=== PATIENT | male | born 1990 | race Caucasian/White ===

== ENCOUNTER 2017-08-19 11:53 | Emergency (ER) | payer OTHER, BC ==
[2017-08-19] MEDS ORDERED: Lidocaine 1% 20 ML MDV INJECT ONE (12:18)
[2017-08-19] MEDS ORDERED: Bacitracin Oint 1 GM U/D Packet TOP ONE (12:18)
[2017-08-19] MEDS ORDERED: Diphtheria,Pertussis(Acell),Tetanus Vaccine 0.5 ML Syringe IM ONE (12:18)
--- NOTE | 2017-08-19 13:03 | EDM.PDOC ---
ED HPI GENERAL MEDICAL PROBLEM - General Chief Complaint: Laceration Stated Complaint: PT CUT FINGER ON RT HAND Time Seen by Provider: 08/19/17 12:17 Source of Information: Reports: Patient History Limitations: Reports: No Limitations - History of Present Illness INITIAL COMMENTS - FREE TEXT/NARRATIVE: HISTORY AND PHYSICAL: History of present illness: Patient is a 27-year-old male who presents to the emergency room today with complaints of rash injury to the right hand. He states that his hand was pinched between a trailer hitch and a tailgate, helping and a laceration to the right fourth finger. He has a 2.5 cm laceration to the MIP anterior right fourth digit. No current bleeding. Full range of motion without difficulty or deficits. Tetanus has been updated in less than 5 years. Review of systems: As per history of present illness and below otherwise all systems reviewed and negative. Past medical history: As per history of present illness and as reviewed below otherwise noncontributory. Surgical history: As per history of present illness and as reviewed below otherwise noncontributory. Social history: No reported history of drug or alcohol abuse. Family history: As per history of present illness and as reviewed below otherwise noncontributory. Physical exam: Gen.: Well-developed and well-nourished 27-year-old male. Alert and oriented. Nontoxic appearing and in no acute distress HEENT: Atraumatic, normocephalic, pupils reactive, negative for conjunctival pallor or scleral icterus, mucous membranes moist, throat clear, neck supple, nontender, trachea midline. Lungs: Clear to auscultation, breath sounds equal bilaterally, chest nontender. Heart: S1S2, regular, negative for clicks, rubs, or JVD. Abdomen: Soft, nondistended, nontender. Negative for masses or hepatosplenomegaly. Negative for costovertebral tenderness. Pelvis: Stable nontender. Genitourinary: Deferred. Rectal: Deferred. Extremities: Moves all extremities per self. Able to flex and extend all digits of affected hand/fingers, appears to have no tendon involvement. Strong pedal pusles bilaterally. Cap refill less than 3 seconds. Neurovascular unremarkable. Skin: 2.5 centimeter laceration to the base of the right fourth digit, anterior pad. Neuro: Awake, alert, oriented. Cranial nerves II through XII unremarkable. Cerebellum unremarkable. Motor and sensory unremarkable throughout. Exam nonfocal. Diagnostics: Xray Hand Therapeutics: Lidocaine Impression: Hand Laceration Plan: 1. Stitch removal in 7-10 days. Continue to monitor for signs of infection. Take your antibiotic as prescribed. 2. Follow-up with your primary caregiver in the next couple days. Return to the ED as needed and as discussed. Definitive disposition and diagnosis as appropriate pending reevaluation and review of above. Onset: Today Duration: Hour(s): Location: Reports: Upper Extremity, Right R Hand Pain Score (Numeric/FACES): 5 - Related Data Allergies Allergy/AdvReac Type Severity Reaction Status Date / Time No Known Allergies Allergy Verified 08/19/17 12:11 Home Meds: Home Meds Cephalexin [Keflex] 500 mg PO BID 7 Days #14 capsule 08/19/17 [Rx] Past Medical History - Past Health History Medical/Surgical History: Denies Medical/Surgical History - Infectious Disease History Infectious Disease History: Reports: Chicken Pox Social & Family History - Family History Family Medical History: Noncontributory - Tobacco Use Smoking Status *Q: Never Smoker Second Hand Smoke Exposure: No - Caffeine Use Caffeine Use: Reports: Coffee, Energy Drinks, Soda, Tea - Recreational Drug Use Recreational Drug Use: No ED ROS GENERAL - Review of Systems Review Of Systems: ROS reveals no pertinent complaints other than HPI. ED EXAM, SKIN/RASH Exam: See Below (See dictation) ED SKIN PROCEDURES - Laceration/Wound Repair Right 4th digit Lac/Wound length In cm: 2.5 Appearance: Subcutaneous Local Anesthesia - Lidocaine (Xylocaine): 1% Plain Local Anesthetic Volume: 5cc Skin Prep: Chlorhexidine (Hibiciens), Saline, Sterile Drape Exploration/Debridement/Repair: Wound Explored, No Foreign Material Found, Other (No tendon involvement) Closed with: Sutures Suture Size: 4-0 # of Sutures: 6 Suture Type: Interrupted Drain Placement: No Sterile Dressing Applied: Provider Tetanus Status Addressed: Yes Complications: No Progress/Comments: Non-stick dressing applied with 1/2 cast fiberglass splint application Course - Vital Signs Last Recorded V/S: Last Vital Signs Temp 95.6 F 08/19/17 12:09 Pulse 96 08/19/17 12:09 Resp 18 08/19/17 12:09 BP 141/85 H 08/19/17 12:09 Pulse Ox 99 08/19/17 12:09 - Orders/Labs/Meds Orders: Active Orders 24 hr Category Date Time Status Vaccines to be Administered [RC] PER UNIT ROUTINE Care 08/19/17 12:19 Active DME for Discharge [COMM] Stat Oth 08/19/17 14:38 Ordered Meds: Medications Discontinued Medications Generic Name Dose Route Start Last Admin Trade Name Tom PRN Reason Stop Dose Admin Bacitracin 1 dose 08/19/17 12:18 08/19/17 13:18 Bacitracin Oint 1 Gm TOP 08/19/17 12:19 1 dose ONETIME ONE Administration Diphtheria/Tetanus/Acell Pertussis 0.5 ml 08/19/17 12:18 08/19/17 13:14 Adacel IM 08/19/17 12:19 0.5 ml .ONCE ONE Administration Ibuprofen 800 mg 08/19/17 14:53 08/19/17 14:59 Motrin PO 08/19/17 14:54 800 mg ONETIME ONE Administration Lidocaine HCl 20 ml 08/19/17 12:18 08/19/17 13:18 Xylocaine 1% INJECT 08/19/17 12:19 20 ml ONETIME ONE Administration Departure - Departure Time of Disposition: 14:50 Disposition: Home, Self-Care 01 Clinical Impression: Laceration - Discharge Information Prescriptions: Cephalexin [Keflex] 500 mg PO BID 7 Days #14 capsule Instructions: Crush Injury of the Hand, [id number] Referrals: Eufemia Muse MD [Physician] - 1 Week (Follow up within the next week. ) PCP,None [Primary Care Provider] - Forms: ED Department Discharge Care Plan Goals: Ice, elevate, rest extremity. Use splint as directed. Motrin for pain and swelling. Tramadol as needed for pain. Take full amount of antibiotics. - My Orders Last 24 Hours: My Active Orders 08/19/17 12:19 Vaccines to be Administered [RC] PER UNIT ROUTINE 08/19/17 14:38 DME for Discharge [COMM] Stat - Assessment/Plan Last 24 Hours: My Active Orders 08/19/17 12:19 Vaccines to be Administered [RC] PER UNIT ROUTINE 08/19/17 14:38 DME for Discharge [COMM] Stat
[2017-08-19] MEDS ORDERED: Ibuprofen 800 MG Tab PO ONE (14:53)
--- NOTE | 2017-08-19 15:16 | CR ---
EXAM DATE: 08/19/17 PATIENT'S AGE: 27 Patient: VITO CHAPARRO Facility: [place], [place] Site . Site : 1990 Study: XRay Extremity Right HAND [id number]/14/2018 1:38:40 PM Ordering Physician: Doctor Mendez Final Report: INDICATION: Trauma. TECHNIQUE: Two views of the right hand. COMPARISON: None. IMPRESSION: No fracture, subluxation or dislocation. Dictated by Dick Mohan MD @ 08/19/2017 1:51:44 PM Dictated by: Dick Mohan MD @ 08/19/2017 13:52:17 (Electronic Signature) Report Signed by Proxy. ROMEO
== END 2017-08-19 15:02 | disposition home or self-care (01) ==
LOC: MW.ED 11:53
DX: S61.214A Laceration without foreign body of right ring finger without damage to nail, initial encounter (principal); W23.0XXA Caught, crushed, jammed, or pinched between moving objects, initial encounter; Z23 Encounter for immunization
CPT/HCPCS: 12001; 73120; 90471; 90715; 99283; A9270; 99282

== ENCOUNTER 2017-11-03 00:14 | Emergency (ER) | payer BC, OTHER ==
[2017-11-03] MEDS ORDERED: Sodium Chloride 0.9% 1,000 ML IV ONE (00:33)
[2017-11-03] MEDS ORDERED: Sodium Chloride 0.9% 2.5 ML Syringe FLUSH PRN ×2 (00:33)
[2017-11-03] MEDS ORDERED: Aspirin 81 MG Tab.Chew PO ONE (00:33)
[2017-11-03] MEDS ORDERED: Sodium Chloride 0.9% 10 ML Syringe FLUSH PRN (00:33)
--- NOTE | 2017-11-03 00:35 | EDM.PDOC ---
ED HPI GENERAL MEDICAL PROBLEM - General Chief Complaint: General Stated Complaint: POSSIBLE HEART ATTACK Time Seen by Provider: 11/03/17 00:35 Source of Information: Reports: Patient History Limitations: Reports: No Limitations - History of Present Illness INITIAL COMMENTS - FREE TEXT/NARRATIVE: HISTORY AND PHYSICAL: History of present illness: 27-year-old male presenting in the emergency department with chief complaint of chest tightness and diaphoresis 2 hours. Patient states for the last 2 days he has felt off and has had associated diaphoresis and some nausea. Tonight while he was sitting [place] have some chest tightness that radiated into his left arm. He had associated diaphoresis as well as nausea but denies any significant shortness of breath. He does have a strong family history of cardiac disease with a father that had an RI in his 50s. Secondary to above the Emergency room for further evaluation. Currently the patient feels diaphoretic but does not have any chest tightness. Does have some nausea but denies any recent fevers. Up until 2 days ago is feeling his normal self. Denies any dysuria, abdominal pain, sore throat, leg pain. Currently denies any chest pain, palpitations, shortness of breath, syncopal episodes, focal neurologic deficits. - D-dimer elevated at 1.79, CBC, CMP, EKG, troponin, INR all unremarkable. Secondary to elevated d-dimer as well as now having some mild shortness of breath ordered CTA for possible PE. -0410 CTA negative for acute PE Review of systems: As per history of present illness and below otherwise all systems reviewed and negative. Past medical history: As per history of present illness and as reviewed below otherwise noncontributory. Surgical history: As per history of present illness and as reviewed below otherwise noncontributory. Social history: No reported history of drug or alcohol abuse. Family history: As per history of present illness and as reviewed below otherwise noncontributory. Physical exam: HEENT: Atraumatic, normocephalic, pupils reactive, negative for conjunctival pallor or scleral icterus, mucous membranes moist, throat clear, neck supple, nontender, trachea midline. Lungs: Clear to auscultation, breath sounds equal bilaterally, chest nontender. Heart: S1S2, regular, negative for clicks, rubs, or JVD. Abdomen: Soft, nondistended, nontender. Negative for masses or hepatosplenomegaly. Negative for costovertebral tenderness. Pelvis: Stable nontender. Genitourinary: Deferred. Rectal: Deferred. Extremities: Atraumatic, negative for cords or calf pain. Neurovascular unremarkable. Neuro: Awake, alert, oriented. Cranial nerves II through XII unremarkable. Cerebellum unremarkable. Motor and sensory unremarkable throughout. Exam nonfocal. Diagnostics: CBC, CMP, chest x-ray, EKG, troponin, INR, d-dimer, CTA Therapeutics: ASA 324 mg PO Impression: Viral gastroenteritis Plan: CBC, CMP, chest x-ray, EKG, troponin, INR were all unremarkable. Patient's d- dimer was slightly elevated and secondary to symptoms we did get a CTA which was negative for large, central pulmonary embolism. Of note, segmental and subsegmental pulmonary arteries were not adequately evaluated. Did discuss with patient, he has had no recent travel is complaining of no leg pain or leg swelling, no recent surgery, Well's criteria low probability for PE. Most likely patient has some viral gastroenteritis that is causing his diaphoresis as well as nausea. This was explained to the patient he was advised to follow- up with his primary care physician Dr. Dietrich. Patient was discharged in good condition with instructions to return to emergency department if he had any new or worsening symptoms. denies chest pain Pain Score (Numeric/FACES): 0 - Related Data Allergies Allergy/AdvReac Type Severity Reaction Status Date / Time No Known Allergies Allergy Verified 11/03/17 00:27 Home Meds: Home Meds Lisinopril/Hydrochlorothiazide [Lisinopril-Hctz 10-12.5 mg Tab] 1 each PO DAILY 11/03/17 [History] Past Medical History - Past Health History Medical/Surgical History: Denies Medical/Surgical History HEENT History: Reports: None Cardiovascular History: Reports: Hypertension Respiratory History: Reports: None Gastrointestinal History: Reports: None Genitourinary History: Reports: None Musculoskeletal History: Reports: None Neurological History: Reports: None Psychiatric History: Reports: None Endocrine/Metabolic History: Reports: None Hematologic History: Reports: None Immunologic History: Reports: None Oncologic (Cancer) History: Reports: None Dermatologic History: Reports: None - Infectious Disease History Infectious Disease History: Reports: None Social & Family History - Family History Family Medical History: Noncontributory - Tobacco Use Smoking Status *Q: Never Smoker - Caffeine Use Caffeine Use: Reports: Soda - Recreational Drug Use Recreational Drug Use: No ED ROS GENERAL - Review of Systems Review Of Systems: See Below ED EXAM, GENERAL - Physical Exam Exam: See Below Course - Vital Signs Last Recorded V/S: Last Vital Signs Temp 97.6 F 11/03/17 00:25 Pulse 80 11/03/17 04:06 Resp 18 11/03/17 04:06 BP 133/73 11/03/17 04:06 Pulse Ox 97 11/03/17 04:06 - Orders/Labs/Meds Orders: Active Orders 24 hr Category Date Time Status Cardiac Monitoring [RC] . DIRECTED Care 11/03/17 00:33 Active EKG Documentation Completion [RC] STAT Care 11/03/17 00:33 Active Oxygen Therapy [RC] ASDIRECTED Care 11/03/17 00:33 Active Pulse Oximetry [RC] ASDIRECTED Care 11/03/17 00:33 Active CTA Chest W WO Contrast [Ang Chest] [CT] Stat Exams 11/03/17 01:52 Taken Chest 1V Frontal [CR] Stat Exams 11/03/17 00:33 Taken UA W/MICROSCOPIC [URIN] Stat Lab 11/03/17 01:45 Ordered Sodium Chloride 0.9% [Saline Flush] Med 11/03/17 00:33 Active 10 ml FLUSH ASDIRECTED PRN Sodium Chloride 0.9% [Saline Flush] Med 11/03/17 00:33 Active 2.5 ml FLUSH ASDIRECTED PRN Sodium Chloride 0.9% [Saline Flush] Med 11/03/17 00:33 Active 2.5 ml FLUSH ASDIRECTED PRN Saline Lock Insert [OM.PC] Stat Oth 11/03/17 00:33 Ordered Medication Orders Sodium Chloride (Saline Flush) 2.5 ml FLUSH ASDIRECTED PRN PRN Reason: Keep Vein Open Last Admin: 11/03/17 01:01 Dose: 2.5 ml Sodium Chloride (Saline Flush) 10 ml FLUSH ASDIRECTED PRN PRN Reason: Keep Vein Open Last Admin: 11/03/17 01:00 Dose: 10 ml Sodium Chloride (Saline Flush) 2.5 ml FLUSH ASDIRECTED PRN PRN Reason: Keep Vein Open Labs: Laboratory Tests 11/03/17 11/03/17 11/03/17 Range/Units 00:55 00:55 00:55 WBC 4.82 (4.0-11.0) K/uL RBC 4.91 (4.50-5.90) M/uL Hgb 14.7 (13.0-17.0) g/dL Hct 42.4 (38.0-50.0) % MCV 86.4 (80.0-98.0) fL MCH 29.9 (27.0-32.0) pg MCHC 34.7 (31.0-37.0) g/dL RDW Std Deviation 38.7 (28.0-62.0) fl RDW Coeff of Virginie 13 (11.0-15.0) % Plt Count 141 L (150-400) K/uL MPV 9.20 (7.40-12.00) fL Neut % (Auto) 62.1 (48.0-80.0) % Lymph % (Auto) 22.2 (16.0-40.0) % [place] % (Auto) 14.7 (0.0-15.0) % Eos % (Auto) 0.4 (0.0-7.0) % Baso % (Auto) 0.6 (0.0-1.5) % Neut # (Auto) 3.0 (1.4-5.7) K/uL Lymph # (Auto) 1.1 (0.6-2.4) K/uL [place] # (Auto) 0.7 (0.0-0.8) K/uL Eos # (Auto) 0.0 (0.0-0.7) K/uL Baso # (Auto) 0.0 (0.0-0.1) K/uL INR 1.06 D-Dimer, Quantitative 1.79 H (0.0-0.52) mg/LFEU Sodium 136 (136-148) mmol/L Potassium 3.8 (3.5-5.1) mmol/L Chloride 102 (98-107) mmol/L Carbon Dioxide 23.5 (21.0-32.0) mmol/L BUN 15 (7.0-18.0) mg/dL Creatinine 1.1 (0.8-1.3) mg/dL Est Cr Clr Drug Dosing 130.41 mL/min Estimated GFR (MDRD) > 60.0 ml/min Glucose 135 H (74-106) mg/dL Calcium 8.6 (8.5-10.1) mg/dL Total Bilirubin 0.4 (0.2-1.0) mg/dL AST 108 H (15-37) IU/L ALT 144 H (14-63) IU/L Alkaline Phosphatase 73 (46-116) U/L Troponin I < 0.050 (0.000-0.056) ng/mL Total Protein 7.2 (6.4-8.2) g/dL Albumin 3.8 (3.4-5.0) g/dL Globulin 3.4 (2.0-3.5) g/dL Albumin/Globulin Ratio 1.1 L (1.3-2.8) Urine Color Urine Appearance Urine pH (5.0-8.0) Ur Specific [place] (1.001-1.035) Urine Protein (NEGATIVE) mg/dL Urine Glucose (UA) (NEGATIVE) mg/dL Urine Ketones (NEGATIVE) mg/dL Urine Occult Blood (NEGATIVE) Urine Nitrite (NEGATIVE) Urine Bilirubin (NEGATIVE) Urine Urobilinogen (<2.0) EU/dL Ur Leukocyte Esterase (NEGATIVE) Urine RBC (0-2/HPF) Urine WBC (0-5/HPF) Ur Epithelial Cells (NONE-FEW) Urine Bacteria (NEGATIVE) 11/03/17 Range/Units 01:45 WBC (4.0-11.0) K/uL RBC (4.50-5.90) M/uL Hgb (13.0-17.0) g/dL Hct (38.0-50.0) % MCV (80.0-98.0) fL MCH (27.0-32.0) pg MCHC (31.0-37.0) g/dL RDW Std Deviation (28.0-62.0) fl RDW Coeff of Virginie (11.0-15.0) % Plt Count (150-400) K/uL MPV (7.40-12.00) fL Neut % (Auto) (48.0-80.0) % Lymph % (Auto) (16.0-40.0) % [place] % (Auto) (0.0-15.0) % Eos % (Auto) (0.0-7.0) % Baso % (Auto) (0.0-1.5) % Neut # (Auto) (1.4-5.7) K/uL Lymph # (Auto) (0.6-2.4) K/uL [place] # (Auto) (0.0-0.8) K/uL Eos # (Auto) (0.0-0.7) K/uL Baso # (Auto) (0.0-0.1) K/uL INR D-Dimer, Quantitative (0.0-0.52) mg/LFEU Sodium (136-148) mmol/L Potassium (3.5-5.1) mmol/L Chloride (98-107) mmol/L Carbon Dioxide (21.0-32.0) mmol/L BUN (7.0-18.0) mg/dL Creatinine (0.8-1.3) mg/dL Est Cr Clr Drug Dosing mL/min Estimated GFR (MDRD) ml/min Glucose (74-106) mg/dL Calcium (8.5-10.1) mg/dL Total Bilirubin (0.2-1.0) mg/dL AST (15-37) IU/L ALT (14-63) IU/L Alkaline Phosphatase (46-116) U/L Troponin I (0.000-0.056) ng/mL Total Protein (6.4-8.2) g/dL Albumin (3.4-5.0) g/dL Globulin (2.0-3.5) g/dL Albumin/Globulin Ratio (1.3-2.8) Urine Color YELLOW Urine Appearance CLEAR Urine pH 6.0 (5.0-8.0) Ur Specific [place] 1.020 (1.001-1.035) Urine Protein NEGATIVE (NEGATIVE) mg/dL Urine Glucose (UA) NEGATIVE (NEGATIVE) mg/dL Urine Ketones NEGATIVE (NEGATIVE) mg/dL Urine Occult Blood NEGATIVE (NEGATIVE) Urine Nitrite NEGATIVE (NEGATIVE) Urine Bilirubin NEGATIVE (NEGATIVE) Urine Urobilinogen 0.2 (<2.0) EU/dL Ur Leukocyte Esterase NEGATIVE (NEGATIVE) Urine RBC 0-1 (0-2/HPF) Urine WBC 0-1 (0-5/HPF) Ur Epithelial Cells RARE (NONE-FEW) Urine Bacteria RARE (NEGATIVE) Meds: Medications Generic Name Dose Route Start Last Admin Trade Name Freq PRN Reason Stop Dose Admin Sodium Chloride 2.5 ml 11/03/17 00:33 11/03/17 01:01 Saline Flush FLUSH 2.5 ml ASDIRECTED PRN Administration Keep Vein Open Sodium Chloride 10 ml 11/03/17 00:33 11/03/17 01:00 Saline Flush FLUSH 10 ml ASDIRECTED PRN Administration Keep Vein Open Sodium Chloride 2.5 ml 11/03/17 00:33 Saline Flush FLUSH ASDIRECTED PRN Keep Vein Open Discontinued Medications Generic Name Dose Route Start Last Admin Trade Name Freq PRN Reason Stop Dose Admin Aspirin 324 mg 11/03/17 00:33 11/03/17 01:02 Aspirin PO 11/03/17 00:34 324 mg ONETIME ONE Administration Sodium Chloride 1,000 mls @ 999 mls/hr 11/03/17 00:33 11/03/17 01:02 Normal Saline IV 11/03/17 01:33 999 mls/hr .Bolus ONE Administration Metoclopramide HCl 10 mg 11/03/17 00:52 11/03/17 01:02 Reglan IVPUSH 11/03/17 00:53 10 mg ONETIME ONE Administration Departure - Departure Time of Disposition: 04:19 Disposition: Home, Self-Care 01 Condition: Good Clinical Impression: Viral gastroenteritis - Discharge Information Referrals: PCP,None [Primary Care Provider] - Forms: ED Department Discharge Additional Instructions: My general discharge The following information is given to patients seen in the emergency department who are being discharged to home. This information is to outline your options for follow-up care. We provide all patients seen in our emergency department with a follow-up referral. The need for follow-up, as well as the timing and circumstances, are variable depending upon the specifics of your emergency department visit. If you don't have a primary care physician on staff, we will provide you with a referral. We always advise you to contact your personal physician following an emergency department visit to inform them of the circumstance of the visit and for follow-up with them and/or the need for any referrals to a consulting specialist. The emergency department will also refer you to a specialist when appropriate. This referral assures that you have the opportunity for follow-up care with a specialist. All of these measure are taken in an effort to provide you with optimal care, which includes your follow-up. Under all circumstances we always encourage you to contact your private physician who remains a resource for coordinating your care. When calling for follow-up care, please make the office aware that this follow-up is from your recent emergency room visit. If for any reason you are refused follow-up, please contact the [facility] Emergency Department at and asked to speak to the emergency department charge nurse. [facility] [address] [place] [id number] - My Orders Last 24 Hours: My Active Orders 11/03/17 00:33 Cardiac Monitoring [RC] . DIRECTED EKG Documentation Completion [RC] STAT Oxygen Therapy [RC] ASDIRECTED Pulse Oximetry [RC] ASDIRECTED Chest 1V Frontal [CR] Stat Sodium Chloride 0.9% [Saline Flush] 10 ml FLUSH ASDIRECTED PRN Sodium Chloride 0.9% [Saline Flush] 2.5 ml FLUSH ASDIRECTED PRN Sodium Chloride 0.9% [Saline Flush] 2.5 ml FLUSH ASDIRECTED PRN Saline Lock Insert [OM.PC] Stat 11/03/17 01:45 UA W/MICROSCOPIC [URIN] Stat 11/03/17 01:52 CTA Chest W WO Contrast [Ang Chest] [CT] Stat - Assessment/Plan Last 24 Hours: My Active Orders 11/03/17 00:33 Cardiac Monitoring [RC] . DIRECTED EKG Documentation Completion [RC] STAT Oxygen Therapy [RC] ASDIRECTED Pulse Oximetry [RC] ASDIRECTED Chest 1V Frontal [CR] Stat Sodium Chloride 0.9% [Saline Flush] 10 ml FLUSH ASDIRECTED PRN Sodium Chloride 0.9% [Saline Flush] 2.5 ml FLUSH ASDIRECTED PRN Sodium Chloride 0.9% [Saline Flush] 2.5 ml FLUSH ASDIRECTED PRN Saline Lock Insert [OM.PC] Stat 11/03/17 01:45 UA W/MICROSCOPIC [URIN] Stat 11/03/17 01:52 CTA Chest W WO Contrast [Ang Chest] [CT] Stat
[2017-11-03] MEDS ORDERED: Metoclopramide 10 MG/2 ML SDV IVPUSH ONE (00:52)
[2017-11-03 01:31] LABS: CHLORIDE,CL 102 mmol/L (98-107); SODIUM,NA 136 mmol/L (136-148)
--- NOTE | 2017-11-03 16:44 | CR ---
EXAM DATE: 11/03/17 PATIENT'S AGE: 27 Patient: VITO CHAPARRO Facility: [place], [place] Site . Site : 1990 Study: XRay Chest [id number]/29/2018 1:10:11 AM Ordering Physician: Doctor Mendez Final Report: INDICATION: Syncope TECHNIQUE: Single view chest. FINDINGS: The lungs are clear. The heart, mediastinum and pulmonary vessels are of normal size. There is no evidence of pleural disease. IMPRESSION: Negative chest. Dictated by Danyelle Vargas MD @ Nov 03 2017 1:55AM (Electronic Signature) Report Signed by Proxy. ROMEO
--- NOTE | 2017-11-03 16:45 | CT ---
EXAM DATE: 11/03/17 PATIENT'S AGE: 27 Patient: VITO CHAPARRO Facility: [place], [place] Site . Site : 1990 Study: CT Chest Angio [id number]/29/2018 2:32:22 AM Ordering Physician: Arias Rodas Final Report: INDICATION: Chest pain. Positive D-dimer TECHNIQUE: CT chest pulmonary PE protocol acquired with IV contrast. COMPARISON: None FINDINGS: Cardiovascular structures: Suboptimal timing of the contrast bolus with heterogeneous opacification of pulmonary arteries. Segmental and subsegmental pulmonary arteries are not adequately evaluated. No gross large, central pulmonary embolus identified. Upper limits of normal cardiac size. Normal aortic caliber. Mediastinum and tereso: No abnormally enlarged lymph nodes. Lungs: Clear. Pleura and pericardium: No effusions. Chest wall and axilla: No mass or adenopathy. Upper abdomen: Splenomegaly measuring 14.5 centimeters. Bones: No significant findings. IMPRESSION: Limited study. Segmental and subsegmental pulmonary arteries are not adequately evaluated. No definite large, central pulmonary embolus seen. Splenomegaly. Dictated by Reed Ha MD @ 11/03/2017 3:38:41 AM Please note that all CT scans at this facility use dose modulation, iterative reconstruction, and/or weight-based dosing when appropriate to reduce radiation dose to as low as reasonably achievable. Dictated by: Reed Ha MD @ 11/03/2017 03:38:45 (Electronic Signature) Report Signed by Proxy. [facility]
== END 2017-11-03 04:40 | disposition home or self-care (01) ==
LOC: MW.ED 00:14
DX: A08.4 Viral intestinal infection, unspecified (principal); I10 Essential (primary) hypertension; Z79.899 Other long term (current) drug therapy
CPT/HCPCS: 36415; 71045; 71275; 80053; 81001; 82962; 84484; 85025; 85379; 85610; 93005; 96361; 96374; 99285; A9270; J2765; J7040; 99283

== ENCOUNTER 2020-04-28 11:40 | Emergency (ER) | payer BC ==
[2020-04-28] MEDS ORDERED: Acetaminophen/HYDROcodone 325-5 MG Tab PO ONE (11:51)
--- NOTE | 2020-04-28 12:53 | CT ---
INDICATION: Trauma, bucked off horse yesterday TECHNIQUE: CT chest without contrast. COMPARISON: CT angio chest 11/03/2017 FINDINGS: The heart is normal in size. Evaluation of the vasculature is limited due to lack IV contrast, however no free fluid is seen within the mediastinum. The lungs are clear. Negative for focal consolidation, pleural effusion or pneumothorax. The visualized upper abdomen is unremarkable. IMPRESSION: Unremarkable noncontrast CT examination of the chest. Please note that all CT scans at this facility use dose modulation, iterative reconstruction, and/or weight-based dosing when appropriate to reduce radiation dose to as low as reasonably achievable. Dictated by Lori Jean MD @ Apr 28 2020 12:47PM Signed by Dr. Lori Jean @ Apr 28 2020 12:54PM
--- NOTE | 2020-04-28 12:57 | CT ---
INDICATION: Trauma, fall off horse, neck pain TECHNIQUE: CT cervical spine without contrast. COMPARISON: None FINDINGS: Evaluation is somewhat limited due to patient body habitus. There is mild straightening of the normal cervical lordosis which may be due to patient positioning. The vertebral body heights are maintained and in good alignment. The disc spaces are preserved. The prevertebral soft tissues are within normal limits. The facets are properly aligned. Negative for acute fracture. IMPRESSION: Negative for acute fracture. Please note that all CT scans at this facility use dose modulation, iterative reconstruction, and/or weight-based dosing when appropriate to reduce radiation dose to as low as reasonably achievable. Dictated by Lori Jean MD @ Apr 28 2020 12:54PM Signed by Dr. Lori Jean @ Apr 28 2020 12:59PM
--- NOTE | 2020-04-28 13:03 | CT ---
INDICATION: Back pain, fall from horse TECHNIQUE: CT lumbar spine without contrast. COMPARISON: None FINDINGS: There are 5 [id number] lumbar type vertebral bodies. The vertebral body heights are maintained and in good alignment. There is mild diffuse disc space narrowing. There is grade 1 anterolisthesis of L5 on S1, due to bilateral spondylolysis. There is a possible lucent line extending through the transverse process of L2 on the left, suggestive of a nondisplaced fracture. No additional fracture is visualized. Limited visualization of the abdomen is unremarkable. IMPRESSION: 1. Possible lucent line extending through the left transverse process of L2. This may represent a nondisplaced fracture. Recommend correlation with point tenderness. 2. Grade 1 anterolisthesis of L5 on S1, due to chronic appearing bilateral spondylolysis. Associated degenerative disc changes at L5-S1. Please note that all CT scans at this facility use dose modulation, iterative reconstruction, and/or weight-based dosing when appropriate to reduce radiation dose to as low as reasonably achievable. Dictated by Lori Jean MD @ Apr 28 2020 12:59PM Signed by Dr. Lori Jean @ Apr 28 2020 1:06PM
--- NOTE | 2020-04-28 13:10 | CT ---
INDICATION: Fall from horse, back pain TECHNIQUE: CT thoracic spine without contrast. COMPARISON: CT chest 11/03/2017 FINDINGS: There is normal thoracic kyphosis. The vertebral body heights are maintained and in good alignment. Evaluation of the upper thoracic spine is somewhat limited due to patient body habitus. There are tiny osseous fragments seen along the inferior aspect of multiple spinous processes. These appear similar to prior CT from 2018. There is mild diffuse disc space narrowing with Schmorl`s nodes. Negative for acute fracture. The facets are properly aligned. IMPRESSION: 1. Negative for acute fracture within the limits of this exam. 2. Mild multilevel degenerative changes of the thoracic spine. Please note that all CT scans at this facility use dose modulation, iterative reconstruction, and/or weight-based dosing when appropriate to reduce radiation dose to as low as reasonably achievable. Dictated by Lori Jean MD @ Apr 28 2020 1:00PM Signed by Dr. Lori Jean @ Apr 28 2020 1:12PM
--- NOTE | 2020-04-28 13:27 | EDM.PDOC ---
ED HPI GENERAL MEDICAL PROBLEM - General Chief Complaint: Back Pain or Injury Stated Complaint: fall off horse Time Seen by Provider: 04/28/20 11:50 Source of Information: Reports: Patient History Limitations: Reports: No Limitations - History of Present Illness INITIAL COMMENTS - FREE TEXT/NARRATIVE: Patient is a 30-year-old male who presents today for left-sided back rib pain. Patient states that yesterday while riding a horse he was bucked off from and directly on his back. Patient not hit his head or any LOC. Patient reports pain to the left back over his ribs. Patient went to the chiropractor earlier today and was mutilated over his rib area. Patient sent here for x-rays. Patient denies any leg weakness urinary symptoms or saddle anesthesia or other complaints. Lower back pain Pain Score (Numeric/FACES): 10 - Related Data Allergies Allergy/AdvReac Type Severity Reaction Status Date / Time No Known Allergies Allergy Verified 04/28/20 12:05 Home Meds: Home Meds Lisinopril/Hydrochlorothiazide [Lisinopril-Hctz 10-12.5 mg Tab] 1 each PO DAILY 11/03/17 [History] Past Medical History - Past Health History Medical/Surgical History: Denies Medical/Surgical History HEENT History: Reports: None Cardiovascular History: Reports: Hypertension Respiratory History: Reports: None Gastrointestinal History: Reports: None Genitourinary History: Reports: None Musculoskeletal History: Reports: None Neurological History: Reports: None Psychiatric History: Reports: None Endocrine/Metabolic History: Reports: None Hematologic History: Reports: None Immunologic History: Reports: None Oncologic (Cancer) History: Reports: None Dermatologic History: Reports: None - Infectious Disease History Infectious Disease History: Reports: None Social & Family History - Family History Family Medical History: No Pertinent Family History - Caffeine Use Caffeine Use: Reports: None - Recreational Drug Use Recreational Drug Use: No ED ROS GENERAL - Review of Systems Review Of Systems: See Below Constitutional: Reports: No Symptoms HEENT: Reports: No Symptoms Respiratory: Reports: No Symptoms Cardiovascular: Reports: No Symptoms Endocrine: Reports: No Symptoms GI/Abdominal: Reports: No Symptoms : Reports: No Symptoms Musculoskeletal: Reports: Muscle Pain, Muscle Stiffness Skin: Reports: No Symptoms Neurological: Reports: No Symptoms Psychiatric: Reports: No Symptoms Hematologic/Lymphatic: Reports: No Symptoms Immunologic: Reports: No Symptoms ED EXAM, GENERAL - Physical Exam Exam: See Below Exam Limited By: No Limitations General Appearance: Alert, No Apparent Distress Eye Exam: Bilateral Eye: EOMI, PERRL Respiratory/Chest: No Respiratory Distress Cardiovascular: Regular Rate, Rhythm GI/Abdominal: Normal Bowel Sounds, Soft, Non-Tender Back Exam: Full Range of Motion. No: Vertebral Tenderness Extremities: Normal Range of Motion Neurological: Alert, Oriented, CN II-XII Intact, Normal Cognition, Normal Gait Course - Vital Signs Last Recorded V/S: Last Vital Signs Temp 96.5 F L 04/28/20 12:00 Pulse 120 H 04/28/20 12:00 Resp 18 04/28/20 12:00 BP Pulse Ox 98 04/28/20 12:00 - Orders/Labs/Meds Meds: Medications Discontinued Medications Generic Name Dose Route Start Last Admin Trade Name Freq PRN Reason Stop Dose Admin Hydrocodone Bitart/Acetaminophen 1 tab 04/28/20 11:51 04/28/20 12:36 [place] 325-5 Mg PO 04/28/20 11:52 Not Given ONETIME ONE Departure - Departure Time of Disposition: 13:26 Disposition: Home, Self-Care 01 Condition: Good Clinical Impression: Fall from horse - Discharge Information *PRESCRIPTION DRUG MONITORING PROGRAM REVIEWED*: Not Applicable *COPY OF PRESCRIPTION DRUG MONITORING REPORT IN PATIENT ALEAH: Not Applicable Instructions: Back Injury Prevention, [id number], Muscle Strain, [id number] Referrals: PCP,None [Primary Care Provider] - Additional Instructions: The following information is given to patients seen in the emergency department who are being discharged to home. This information is to outline your options for follow-up care. We provide all patients seen in our emergency department with a follow-up referral. The need for follow-up, as well as the timing and circumstances, are variable depending upon the specifics of your emergency department visit. If you don't have a primary care physician on staff, we will provide you with a referral. We always advise you to contact your personal physician following an emergency department visit to inform them of the circumstance of the visit and for follow-up with them and/or the need for any referrals to a consulting specialist. The emergency department will also refer you to a specialist when appropriate. This referral assures that you have the opportunity for follow-up care with a specialist. All of these measure are taken in an effort to provide you with optimal care, which includes your follow-up. Under all circumstances we always encourage you to contact your private physician who remains a resource for coordinating your care. When calling for follow-up care, please make the office aware that this follow-up is from your recent emergency room visit. If for any reason you are refused follow-up, please contact the [facility] at and asked to speak to the emergency department charge nurse. Please follow up with your primary care physician. If you do not have a primary care physician, see below: [facility] [address] [place] [id number] [facility] [address] [place] [address] Please follow up with your primary care physician as needed. To develop any numbness weakness or urinating please return to the ED. Sepsis Event Note (ED) - Evaluation Sepsis Screening Result: No Definite Risk - Focused Exam Vital Signs: Vital Signs Temp Pulse Resp Pulse Ox 04/28/20 12:00 96.5 F L 120 H 18 98 - Assessment/Plan Plan: Patient is a 30-year-old male presents today at the fall of horse yesterday. Patient did have some pain in the left upper back area. Patient has no spinal tenderness on examination. Patient was sent for CAT scans of the chest and spine. On the L2 spine there was some concern for fracture but on exam patient has no areas of point tenderness. Patient pain is mostly on the left rib in the posterior area. Patient will be discharged home and given strict return precautions.
== END 2020-04-28 13:33 | disposition home or self-care (01) ==
LOC: MW.ED 11:40
DX: R07.81 Pleurodynia (principal); M54.5 Low back pain; M54.6 Pain in thoracic spine; I10 Essential (primary) hypertension; Z79.899 Other long term (current) drug therapy; V80.010A Animal-rider injured by fall from or being thrown from horse in noncollision accident, initial encounter
CPT/HCPCS: 71250; 71250-26; 72125; 72125-26; 72128; 72128-26; 72131; 72131-26; 99284; 99284-25